=== PATIENT | female | born 1945 | race Caucasian/White ===

== ENCOUNTER → 2019-02-08 | Outpatient (CLI) | payer MEDICARE ==
--- NOTE | 2019-02-11 15:50 | RAD ---
EXAM: MAMMO VITA SCREEN RT HISTORY: routine screening evaluation. COMPARISON: Prior mammographic imaging 04/11/2016 CC and MLO views of the right breast performed. Right breast tomosynthesis was performed in CC and MLO projections. This study was interpreted with the benefit of Computerized Aided Detection (CAD). Breast Density: The breast parenchyma is dense, which could reduce the sensitivity of mammography. Breast parenchyma level density D. FINDINGS: Benign calcifications are present. The parenchymal pattern appears stable. No suspicious masses, microcalcifications or architectural distortion is present to suggest malignancy in either breast. The visualized axillae are unremarkable. IMPRESSION: No mammographic evidence of malignancy. BI-RADS CATEGORY: 2 BENIGN FINDING(S) RECOMMENDED FOLLOW-UP: 12M 12 MONTH FOLLOW-UP Annual screening mammography is recommended, unless clinically indicated sooner based on symptoms or change in physical exam. PQRS compliance statement: Patient information was entered into a reminder system with a target due date for the next mammogram. Mammography is a sensitive method for finding small breast cancers, but it does not detect them all and is not a substitute for careful clinical examination. A negative mammogram does not negate a clinically suspicious finding and should not result in delay in biopsying a clinically suspicious abnormality. "Our facility is accredited by the [employer] Mammography Program." LANAD
== END | disposition home or self-care (01) ==
LOC: MAMMO 14:05
PROVIDERS: ATTEND Physician Assistant Medical
DX: Z12.31 Encounter for screening mammogram for malignant neoplasm of breast (principal); N64.89 Other specified disorders of breast; Z85.3 Personal history of malignant neoplasm of breast
CPT/HCPCS: 77063; 77067

== ENCOUNTER → 2019-02-11 | Outpatient (CLI) | payer MEDICARE ==
--- NOTE | 2019-02-11 13:28 | RAD ---
Thyroid ultrasound HISTORY: Elevated TSH level. FINDINGS: Right lobe measures 5.3 x 2.0 x 2.5 cm. Left lobe measures 2.6 x 0.9 x 0.6 cm. Thyroid isthmus measures 4 mm. Mostly isoechoic solid mass at the inferior right lobe of the thyroid measuring 2.1 x 1.6 x 1.3 cm. This demonstrates internal and peripheral blood flow. 5 x 6 x 3 mm nodule at the midpole of the right lobe has a complex morphology without evidence of vascularity. 8 x 5 mm complex cystic nodule in the upper right thyroid adjacent to the isthmus without evidence of vascularity. Numerous additional tiny subcentimeter nodules are seen in both lobes of the thyroid. A couple of ovoid nodules are seen in the right neck, measuring 15 mm and 7 mm each, and each demonstrating benign lymph node architecture. IMPRESSION: 1. 3 right thyroid nodules. Largest at the lower pole measures 2.1 cm with vascularity. Malignant etiology is possible. 2. There are additional tiny subcentimeter nodules in both lobes. 3. Right neck lymph nodes are incidentally noted. Electronically signed by: Roman Armendariz MD (02/11/2019 1:25 PM) [id number]
== END | disposition home or self-care (01) ==
LOC: US 08:07
PROVIDERS: ATTEND Physician Assistant Medical
DX: E04.2 Nontoxic multinodular goiter (principal)
CPT/HCPCS: 76536

== ENCOUNTER → 2019-09-30 | Outpatient (CLI) | payer MEDICARE ==
--- NOTE | 2019-09-30 13:25 | RAD ---
Thyroid ultrasound study compared to similar examination dated 02/11/2019 for six-month follow-up of right thyroid biopsy which was negative. TECHNIQUE AND FINDINGS: Real-time grayscale and color Doppler evaluation of the thyroid gland is performed. The right thyroid lobe measures 5.4 x 2.5 x 2.2 cm and the left measures 3.7 x 1.3 x 1.3 cm. The isthmus measures 4 mm in thickness. There is normal color flow to the gland diffusely. There is redemonstration of a predominantly solid isoechoic nodule within the inferior posterior aspect the right lobe of the thyroid gland which is grossly unchanged in size and character from the prior study. This was the area of previous biopsy. This nodule is partially circumscribed but also demonstrates some area of poorly defined margination. This nodule measures 2.3 x 1.9 x 1.4 cm today, compared to earlier measurements of 2.1 x 1.6 x 1.3 cm. Also redemonstrated are scattered cystic nodules throughout the left lobe of the thyroid gland, as well as a predominantly cystic lesion involving the anterior aspect of the mid lobe of the right thyroid gland. No new nodules are identified. IMPRESSION: 1. Grossly stable appearance of the thyroid gland with a dominant inferior right thyroid isoechoic nodule with some indistinct margins. Measurements are as above. By history this was previously biopsied and negative. No definite interval growth or change in character. Electronically signed by: Wesley Fleming MD (09/30/2019 1:22 PM) [id number]
== END ==
LOC: US 10:05
PROVIDERS: ATTEND Surgery
DX: E04.1 Nontoxic single thyroid nodule (principal)
CPT/HCPCS: 76536

== ENCOUNTER → 2020-03-06 | Outpatient (CLI) | payer MEDICARE ==
--- NOTE | 2020-03-06 16:55 | RAD ---
EXAM: Right humerus, 2 views. HISTORY: Fracture follow-up. COMPARISON: 02/10/2020. FINDINGS: 2 views of the right humerus are obtained. There is internal fixation of a comminuted humeral head and neck fracture with a plate and multiple screws. There has been no significant interval healing along the main fracture lines. There is mild acromioclavicular osteoarthritis. IMPRESSION: No significant interval healing of a comminuted proximal humeral fracture status post internal fixation. Electronically signed by: Denise De Anda MD (03/06/2020 4:52 PM) [id number]
== END | disposition home or self-care (01) ==
LOC: DXRAD 12:16
PROVIDERS: ATTEND Physician Assistant
DX: S42.201A Unspecified fracture of upper end of right humerus, initial encounter for closed fracture (principal); M19.011 Primary osteoarthritis, right shoulder; X58.XXXA Exposure to other specified factors, initial encounter; Y93.89 Activity, other specified; Y92.89 Other specified places as the place of occurrence of the external cause; Y99.8 Other external cause status
CPT/HCPCS: 73060

== ENCOUNTER → 2020-04-03 | Outpatient (CLI) | payer MEDICARE ==
--- NOTE | 2020-04-03 16:20 | RAD ---
EXAM: Right wrist, 2 views per HISTORY: Swelling and pain. COMPARISON: None. FINDINGS: 2 views of the right wrist are obtained. There is a displaced intra-articular fracture of the distal radial metaphysis. There is mild degenerative spurring involving the base of the first metacarpal. There is soft tissue swelling. No foreign body is seen. There is suspected bone demineralization. IMPRESSION: Displaced intra-articular fracture of the distal radial metaphysis. Electronically signed by: Denise De Anda MD (04/03/2020 4:17 PM) [email or web address]
--- NOTE | 2020-04-03 16:32 | RAD ---
EXAM: Right humerus, 2 views. HISTORY: Fracture follow-up. COMPARISON: 03/06/2020. FINDINGS: 2 views of the right humerus are obtained. There is internal fixation of a humeral neck and proximal metaphyseal fracture with a plate and multiple screws. There is no significant interval callus formation along the fracture line. No new fracture is seen. There are chronic appearing rib fractures. IMPRESSION: No significant interval healing of a proximal humeral fracture status post internal fixation. Electronically signed by: Denise De Anda MD (04/03/2020 4:29 PM) [email or web address]
== END | disposition home or self-care (01) ==
LOC: DXRAD 12:34
PROVIDERS: ATTEND Physician Assistant
DX: S42.201A Unspecified fracture of upper end of right humerus, initial encounter for closed fracture (principal); M77.8 Other enthesopathies, not elsewhere classified; X58.XXXA Exposure to other specified factors, initial encounter; Y93.89 Activity, other specified; Y92.89 Other specified places as the place of occurrence of the external cause; Y99.8 Other external cause status
CPT/HCPCS: 73060; 73100

== ENCOUNTER → 2020-05-01 | Outpatient (CLI) | payer MEDICARE ==
--- NOTE | 2020-05-01 13:56 | RAD ---
2 views of right humerus compared to similar study dated 04/03/2020 for history of fracture. FINDINGS: Surgically fixated fracture of the humerus is redemonstrated and grossly unchanged in appearance and configuration from prior exam. There may be subtly more callus formation, though healing remains incomplete. IMPRESSION: 1. Surgically fixated fracture of the right humerus. Electronically signed by: Wesley Fleming MD (05/01/2020 1:53 PM) [id number]
--- NOTE | 2020-05-01 15:51 | RAD ---
3 views the right wrist compared to similar study dated April 03, 2020 for fracture follow-up. FINDINGS: Mildly impacted intra-articular fracture the distal radius is redemonstrated and appears grossly unchanged from the prior exam. No definite new callus formation. IMPRESSION: 1. Redemonstrated mildly impacted comminuted intra-articular distal radial fracture. Electronically signed by: Wesley Fleming MD (05/01/2020 3:47 PM) [email or web address]
== END ==
LOC: DXRAD 13:10
PROVIDERS: ATTEND Physician Assistant
DX: S52.571A Other intraarticular fracture of lower end of right radius, initial encounter for closed fracture (principal); S42.301A Unspecified fracture of shaft of humerus, right arm, initial encounter for closed fracture; X58.XXXA Exposure to other specified factors, initial encounter; Y93.89 Activity, other specified; Y92.89 Other specified places as the place of occurrence of the external cause; Y99.8 Other external cause status
CPT/HCPCS: 73060; 73110

== ENCOUNTER → 2020-05-15 | Outpatient (CLI) | payer MEDICARE ==
--- NOTE | 2020-05-15 16:25 | RAD ---
Right forearm 3 views INDICATION: Forearm pain. History of fractured the shoulder and wrist COMPARISON: Right wrist x-rays of 05/01/2020 FINDINGS: Impacted comminuted intra-articular fracture of the right wrist is present in the setting of mild lung mild deformity to the right wrist with apex radial bowing of the right radius. Since the last radiograph, minimal if any callus formation has occurred. No new fractures are seen. The soft tissues are unremarkable IMPRESSION: There is bowing deformity to the right forearm without evidence of a separate fracture from the wrist fracture previously described. No specific cause for right forearm pain is otherwise identified. Electronically signed by: Mague Navarro MD (05/15/2020 4:22 PM) [id number]
== END ==
LOC: DXRAD 15:09
PROVIDERS: ATTEND Physician Assistant
DX: S42.011A Anterior displaced fracture of sternal end of right clavicle, initial encounter for closed fracture (principal); M21.831 Other specified acquired deformities of right forearm; X58.XXXA Exposure to other specified factors, initial encounter; Y93.89 Activity, other specified; Y92.89 Other specified places as the place of occurrence of the external cause; Y99.8 Other external cause status
CPT/HCPCS: 73090

== ENCOUNTER 2021-08-27 18:06 | Emergency (ER) | payer MEDICARE ==
[~2021-08-27] VITALS: Ht 152.4 cm; Wt 70.5 kg
--- NOTE | 2021-08-27 18:31 | PHYS DOC ---
Past History Past Medical History: Cancer Additional Past Medical Histor: breast cancer Past Surgical History: Other Additional Past Surgical Histo: L mastectomy, eye surgery General Adult EDM: Chief Complaint: RIB PAIN HPI: HPI: Patient is a 76 year old female who presents with above hx of trip and fall on stair case. Fell on Lt side chest and back. No Spleen tenderness. Pain with deep breaths and movement. Injury occured yesterday. Came in to day because she was still sore. Patient has significant past medical history of breast cancer status post surgery radiation and chemotherapy. Has had falls and fracture of right humerus in the past with surgical reconstruction. Patient normally follows with Dr. Joya and has also follow-up with Melissa for care. Patient denies other injury in the fall. Does have extensive tenderness along left chest wall. Has large mastectomy scar. Patient states deep breaths coughing exacerbates pain. Movement and bending over exacerbates pain. No rebound pain to the spleen area. Crests of renal area is nontender. Patient denies any other injury. Patient denies any dyspnea or cardiac dysrhythmia or pain or angina equivalent. Review of Systems: Review of Systems: Constitutional: Denies fever or chills Eyes: Denies change in visual acuity HENT: Denies nasal congestion or sore throat Respiratory: Complains of left chest wall pain Cardiovascular: Complains of left chest wall pain GI: Denies abdominal pain, nausea, vomiting, bloody stools or diarrhea : Denies dysuria Musculoskeletal: Denies back pain or joint pain Integument: Denies rash Neurologic: Denies headache, focal weakness or sensory changes Endocrine: Denies polyuria or polydipsia Lymphatic: Denies swollen glands Psychiatric: Denies depression or anxiety Family History: Family History: Noncontributory to presentation Current Medications: Current Meds: See nursing for home meds Allergies: Allergies: No known drug allergies Physical Exam: PE: Constitutional: Moderate acute distress, non-toxic appearance. [] HENT: Normocephalic, atraumatic, bilateral external ears normal, oropharynx moist, no oral exudates, nose normal. [] Eyes: PERRLA, EOMI, conjunctiva normal, no discharge. [] Neck: Normal range of motion, no tenderness, supple, no stridor. [] Cardiovascular:Heart rate regular rhythm, no murmur []. PMI to left Lungs & Thorax: Bilateral breath sounds equal apex on auscultation [. Marked tenderness left chest wall. Has mastectomy scar. Abdomen: Bowel sounds normal, soft, no spleen tenderness, no masses, no pulsatile masses. [] Skin: Warm, dry, no erythema, no rash. [] Back: No tenderness, no CVA tenderness. [] Extremities: No tenderness, no cyanosis, no clubbing, ROM intact, no edema. No cording appreciated Neurologic: Alert and oriented X 3, normal motor function, normal sensory function, no focal deficits noted. [] Psychologic: Affect anxious, judgement normal, mood normal. [] EKG: EKG: [] Radiology/Procedures: Radiology/Procedures: [[address] [address] IMAGING REPORT Signed PATIENT: BERENICE MEJIA ACCOUNT: [id number] : 1945 LOCATION: ER AGE: 76 SEX: F EXAM STATUS: REG ER ORD. PHYSICIAN: KRISTAL PATEL MD REASON: rib pain, ANTERIOR - MID LEFT SIDE PROCEDURE: CHEST PA & LATERAL EXAM: CHEST 1 VIEW History: Fall, pain COMPARISON: None available TECHNIQUE: Single portable radiograph of the chest FINDINGS: Cardiomegaly. Mild displaced left rib fractures involving the left third through 10th ribs. Mild left lung base airspace opacities likely atelectasis or infiltrate. Probable trace left pneumothorax. IMPRESSION: 1. Mild displaced left rib fractures involving the left third through 10th ribs. Probable trace left pneumothorax. 2. Mild left lung base airspace opacities likely atelectasis or infiltrate. Electronically signed by: Smooth Menjivar MD (08/27/2021 7:38 PM) [id number] DICTATED AND SIGNED BY: SMOOTH MENJIVAR MD DATE: 08/27/211933 CC: KRISTAL PATEL MD; WILMER CLIFTON PA ~MTH0 0 ][address] [address] IMAGING REPORT Signed PATIENT: BERENICE MEJIA ACCOUNT: [id number] : 1945 LOCATION: ER AGE: 76 SEX: F EXAM STATUS: REG ER ORD. PHYSICIAN: KRISTAL PATEL MD REASON: fall down stairs, ANTERIOR-MID RIBS PAIN PROCEDURE: CT CHEST WO CONTRAST Examination: CT chest without contrast HISTORY: History of fall down the stairs, anterior knee pain COMPARISON: None available TECHNIQUE: Axial CT images of chest were performed without contrast. Coronal and sagittal reformats are performed Exposure: One or more of the following individualized dose reduction techniques were utilized for this examination: 1. Automated exposure control 2. Adjustment of the mA and/or kV according to patient size 3. Use of iterative reconstruction technique FINDINGS: 2.1cm nodule identified in the right lobe of thyroid gland. The central airways are patent. Moderate cardiomegaly. Small left pleural effusion identified with left lung base airspace opacity. Linear atelectasis identified in the left lingula or small contusion. Trace left pneumothorax is identified. There are mild displaced fractures of the left third rib anterolaterally and posteriorly, mild displaced fractures left anterolateral and posterior fourth rib, lateral and posterior fifth rib, sixth rib ,seventh rib, eighth and ninth ribs laterally and posteriorly. The visualized noncontrasted liver, spleen grossly appears unremarkable Moderate degenerative changes thoracic spine small superior endplate Schmorl's node identified at T12 vertebral body. IMPRESSION: 1. Multiple left-sided rib fractures as described above. There ribs are fractured at multiple places as described above likely flail chest. 2. Trace left pneumothorax. 3. Small left pleural effusion with left lung base airspace opacity likely atelectasis or infiltrate. 4. Linear atelectasis or small contusion identified in the left lingula of lung. 5. 2.1 cm nodule identified in the right lobe of thyroid gland. Follow-up nonemergent ultrasound thyroid gland. Electronically signed by: Smooth Menjivar MD (08/27/2021 7:29 PM) [id number] DICTATED AND SIGNED BY: SMOOTH MENJIVAR MD DATE: 08/27/211918 CC: KRISTAL PATEL MD; WILMER CLIFTON ~MTH0 0 Heart Score: C/O Chest Pain: N/A Risk Factors: Risk Factors: DM, Current or recent (<one month) smoker, HTN, HLP, family history of CAD, obesity. Risk Scores: Score 0 - 3: 2.5% MACE over next 6 weeks - Discharge Home Score 4 - 6: 20.3% MACE over next 6 weeks - Admit for Clinical Observation Score 7 - 10: 72.7% MACE over next 6 weeks - Early Invasive Strategies Course & Med Decision Making: Course & Med Decision Making Pertinent Labs and Imaging studies reviewed. (See chart for details) Ice packs as needed. Take tylenol ad ibuprofen for pain. Marked pain take Vicoprofen. Re- xray tomorrow- to make sure pneumothorax hemothorax has not expanded. And again then bianka-ray on day 3. Follow-up primary care. Hold any anti coagulants. Ice packs as needed.Hold Pradaxa x 2 days. Impression: 1. Trip and Fall 08/25/2021 2. Multiple Rt. Fractures Lt. side 3. Very Small Pneumothroax left apex 4. Pulmonary contusion/ Hematoma 5. Hx. Breast Cancer S/P surgery, chemo and radiation 6. Hx. of Rx Shoulder Fracture-status post open repair and fixation [] Dragon Disclaimer: Dragon Disclaimer: This electronic medical record was generated, in whole or in part, using a voice recognition dictation system. Departure Departure: Referrals: WILMER CLIFTON (PCP) Scripts Hydrocodone/Ibuprofen (HYDROCODONE-IBUPROFEN 7.5-200 ) 1 Each Tablet 1 TAB PO PRN Q6HRS PRN for PAIN, #30 TAB 0 Refills Prov: KRISTAL PATEL MD 08/27/21 Dragon Disclaimer This chart was dictated in whole or in part using Voice Recognition software in a busy, high-work load, and often noisy Emergency Department environment. It may contain unintended and wholly unrecognized errors or omissions. Dragon Disclaimer This chart was dictated in whole or in part using Voice Recognition software in a busy, high-work load, and often noisy Emergency Department environment. It may contain unintended and wholly unrecognized errors or omissions. Dragon Disclaimer This chart was dictated in whole or in part using Voice Recognition software in a busy, high-work load, and often noisy Emergency Department environment. It may contain unintended and wholly unrecognized errors or omissions. KRISTAL PATEL MD Aug 27, 2021 18:31
[2021-08-27] MEDS: MORPHINE SULFATE 10 MG/ML SYRINGE. SQ ONE (19:14)
--- NOTE | 2021-08-27 19:32 | RAD ---
Examination: CT chest without contrast HISTORY: History of fall down the stairs, anterior knee pain COMPARISON: None available TECHNIQUE: Axial CT images of chest were performed without contrast. Coronal and sagittal reformats a re performed Exposure: One or more of the following individualized dose reduction techniques were utilized for thi s examination: 1. Automated exposure control 2. Adjustment of the mA and/or kV according to patient size 3. Use of iterative reconstruction technique FINDINGS: 2.1cm nodule identified in the right lobe of thyroid gland. The central airways are patent. Moderate cardiomegaly. Small left pleural effusion identified with left lung base airspace opacity. Linear atelectasis ident ified in the left lingula or small contusion. Trace left pneumothorax is identified. There are mild d isplaced fractures of the left third rib anterolaterally and posteriorly, mild displaced fractures le ft anterolateral and posterior fourth rib, lateral and posterior fifth rib, sixth rib ,seventh rib, e ighth and ninth ribs laterally and posteriorly. The visualized noncontrasted liver, spleen grossly ap pears unremarkable Moderate degenerative changes thoracic spine small superior endplate Schmorl's node identified at T12 vertebral body. IMPRESSION: 1. Multiple left-sided rib fractures as described above. There ribs are fractured at multiple places as described above likely flail chest. 2. Trace left pneumothorax. 3. Small left pleural effusion with left lung base airspace opacity likely atelectasis or infiltrate . 4. Linear atelectasis or small contusion identified in the left lingula of lung. 5. 2.1 cm nodule identified in the right lobe of thyroid gland. Follow-up nonemergent ultrasound thy roid gland. Electronically signed by: Smooth Menjivar MD (08/27/2021 7:29 PM) [id number]
--- NOTE | 2021-08-27 19:41 | RAD ---
EXAM: CHEST 1 VIEW History: Fall, pain COMPARISON: None available TECHNIQUE: Single portable radiograph of the chest FINDINGS: Cardiomegaly. Mild displaced left rib fractures involving the left third through 10th ribs . Mild left lung base airspace opacities likely atelectasis or infiltrate. Probable trace left pneumo thorax. IMPRESSION: 1. Mild displaced left rib fractures involving the left third through 10th ribs. Probable trace left pneumothorax. 2. Mild left lung base airspace opacities likely atelectasis or infiltrate. Electronically signed by: Smooth Menjivar MD (08/27/2021 7:38 PM) [id number]
[2021-08-27] MEDS ORDERED: HYDR-1179 PO (19:43)
[2021-08-27 20:32] VITALS: BP 140/78
== END 2021-08-27 20:32 | disposition home or self-care (01) ==
LOC: ER 18:06
DX: S22.42XA Multiple fractures of ribs, left side, initial encounter for closed fracture (principal); J93.9 Pneumothorax, unspecified; Z90.12 Acquired absence of left breast and nipple; W01.0XXA Fall on same level from slipping, tripping and stumbling without subsequent striking against object, initial encounter; Y93.89 Activity, other specified; Y92.89 Other specified places as the place of occurrence of the external cause; Y99.8 Other external cause status
CPT/HCPCS: 71046; 71250; 96372; 99284; J2270

== ENCOUNTER 2021-08-30 13:20 | Emergency (ER) | payer MEDICARE ==
[~2021-08-30] VITALS: Ht 152.4 cm; Wt 70.5 kg
[~2021-08-30 13:20] MED LIST: HYDR-1179 PO
[2021-08-30] MEDS ORDERED: KETOROLAC 60 MG/2 ML VIAL. IM ONE (14:30)
[2021-08-30] MEDS ORDERED: oxyCODONE/APAP 5/325 1 TAB TABLET PO ONE (14:45)
--- NOTE | 2021-08-30 15:07 | RAD ---
EXAM: Chest, 2 views. HISTORY: Rib fractures. Pain. COMPARISON: 08/27/2021 FINDINGS: 2 views of the chest are obtained. There is a stable small left pleural effusion with left lower lobe consolidation or collapse and lingular atelectasis or infiltrate. There is cardiomegaly. T here is no pneumothorax. There are surgical clips overlying the left axilla. There are multiple displ aced left rib fractures. There is internal fixation of a proximal right humeral fracture. IMPRESSION: 1. Stable small left pleural effusion with lower lobe consolidation or collapse and lingular atelecta sis or infiltrate. 2. Multiple displaced left rib fractures. Electronically signed by: Denise De Anda MD (08/30/2021 3:05 PM) [id number]
[2021-08-30] MEDS ORDERED: IV NORMAL SALINE 1,000ML 1,000 ML IV ONE (15:30)
--- NOTE | 2021-08-30 16:12 | RAD ---
CT scan of the head without contrast 08/30/2021 Clinical History: Fall. Head injury. Technique: Unenhanced, contiguous, 5 mm axial sections were obtained through the head. One or more of the following individualized dose reduction techniques were utilized for this study: 1. Automated exposure control. 2. Adjustment of the mA and/or kV according to patient size. 3. Use of iterative reconstruction technique. Findings: There is generalized parenchymal atrophy. Areas of decreased attenuation are seen within th e periventricular and subcortical white matter of both cerebral hemispheres consistent with areas of small vessel ischemic disease. No acute parenchymal abnormality is seen. No extra-axial fluid collect ion is noted. No skull fracture is seen. Impression: No acute intracranial abnormality is seen. CT scan of the cervical spine without contrast 08/30/2021 Clinical history: Fall with neck injury. Technique: Unenhanced, contiguous, 0.625 mm axial sections were obtained through the cervical spine. 2.5 mm reconstructed axial and 2 mm coronal and sagittal reconstructed images were obtained. One or more of the following individualized dose reduction techniques were utilized for this study: 1. Automated exposure control. 2. Adjustment of the mA and/or kV according to patient size. 3. Use of iterative reconstruction technique. Findings: Sagittal and coronal reconstructed images demonstrate mild lateral curvature of the cervica l spine, convex to the left. There is reversal the normal cervical lordosis. Degenerative changes con sisting of varying degrees of disc space narrowing, vertebral endplate sclerosis and mild to moderate anterior vertebral body osteophyte formation are seen throughout the cervical disc spaces. No fracture or subluxation of the cervical vertebrae is seen. Degenerative changes are seen involving the uncovertebral and facet joints throughout the cervical disc spaces. Atherosclerotic calcificatio n is seen in the region carotid bifurcations. Impression: No fracture or subluxation of the cervical vertebra is identified. Electronically signed by: Winston Ortiz MD (08/30/2021 4:10 PM) [id number]
[2021-08-30 16:23] LABS: BASO % 1 % (0-3); EOS # 0.1 x10^3/uL (0.0-0.7); EOS % 1 % (0-3); HEMATOCRIT 42.1 % (36.0-47.0); HEMOGLOBIN 13.8 g/dL (12.0-15.5); LYMPH # 0.7 x10^3/uL (1.0-4.8); LYMPH % 11 % (24-48); MEAN CORPUSCULAR HEMOGLOBIN 31 pg (25-35); MEAN CORPUSCULAR HGB CONC 33 g/dL (31-37); MEAN CORPUSCULAR VOLUME 96 fL (79-100); MONO # 0.8 x10^3/uL (0.0-1.1); MONO % 11 % (0-9); NEUT # 5.3 x10^3uL (1.8-7.7); NEUT % 77 % (31-73); PLATELET COUNT 223 x10^3/uL (140-400); RED BLOOD COUNT 4.39 x10^6/uL (3.50-5.40); RED CELL DISTRIBUTION WIDTH 15.3 % (11.5-14.5); WHITE BLOOD COUNT 6.9 x10^3/uL (4.0-11.0)
--- NOTE | 2021-08-30 16:24 | PHYS DOC ---
Past History Past Medical History: Cancer Additional Past Medical Histor: breast cancer Past Surgical History: Other Additional Past Surgical Histo: L mastectomy, eye surgery Alcohol Use: Occasionally General Adult EDM: Chief Complaint: PAIN CONTROL HPI: HPI: Patient is a 76-year-old female who presents with left-sided rib pain after a fall on Friday. Patient states that she fell down multiple stairs and landed on her left side on a tile floor. Patient was seen in the emergency room on Friday and asked to return for follow-up imaging due to evidence of rib f racture on previous x-rays. Patient states that her pain has not been controlled at home with hydrocodone. Rating pain 02/27. Patient states she is currently taking Pradaxa. Patient has not taken blood thinner since Friday. Patient denies loss of consciousness. Denies any other complaints or injuries. Review of Systems: Review of Systems: ROS At least 10 ROS systems have been reviewed and are negative except as documented in the HPI. General: Negative except as outlined in HPI above. Skin: Negative except as outlined in HPI above. HEENT: Negative except as outlined in HPI above. Neck: Negative except as outlined in HPI above. Respiratory: Negative except as outlined in HPI above.. Cardiovascular: Negative except as outlined in HPI above. Abdomen: Negative except as outlined in HPI above. : Negative except as outlined in HPI above. Back/MSK: Negative except as outlined in HPI above. Neuro: Negative except as outlined in HPI above. Psych: Negative except as outlined in HPI above. Current Medications: Current Meds: Current Medications Medications (Trade) Dose Ordered Sig/Edda Start Time Stop Time Status Last Admin Dose Admin Fentanyl Citrate (Fentanyl 2ml Vial) 50 mcg 1X ONCE 08/30/21 15:30 08/30/21 15:37 DC 08/30/21 16:02 50 MCG Ketorolac Tromethamine (Toradol Im) 60 mg 1X ONCE 08/30/21 14:30 08/30/21 14:31 DC 08/30/21 14:44 60 MG Oxycodone/ Acetaminophen (Percocet 5/325) 1 tab 1X ONCE 08/30/21 14:45 08/30/21 14:46 DC 08/30/21 14:42 1 TAB Sodium Chloride 1,000 ml @ 1,000 mls/hr 1X ONCE 08/30/21 15:30 08/30/21 16:29 08/30/21 15:30 1,000 MLS/HR Allergies: Allergies: Allergies Coded Allergies Type Severity Reaction Last Updated Verified No Known Drug Allergies 08/27/21 No Physical Exam: PE: Constitutional: Well developed, well nourished, no acute distress, non-toxic appearance. HENT: Normocephalic, atraumatic, bilateral external ears normal, oropharynx moist, no oral exudates, nose normal. Eyes: PERRLA, EOMI, conjunctiva normal, no discharge. Neck: Normal range of motion, no tenderness, supple, no stridor. Cardiovascular:Heart rate regular rhythm, no murmur Lungs & Thorax: Bilateral breath sounds clear to auscultation Abdomen: Bowel sounds normal, soft, no tenderness, no masses, no pulsatile masses. Skin: Warm, dry, no erythema, no rash. Back: No tenderness, no CVA tenderness. Extremities: No tenderness, no cyanosis, no clubbing, ROM intact, no edema. Neurologic: Alert and oriented X 3, normal motor function, normal sensory function, no focal deficits noted. Psychologic: Affect normal, judgement normal, mood normal. Current Patient Data: Vital Signs: Vital Signs Date Time Temp Pulse Resp B/P (MAP) Pulse Ox O2 Delivery O2 Flow Rate FiO2 08/30/21 16:02 16 95 08/30/21 13:24 98.0 74 130/72 (91) EKG: EKG: [] Radiology/Procedures: Radiology/Procedures: []CT scan of the head without contrast 08/30/2021 Clinical History: Fall. Head injury. Technique: Unenhanced, contiguous, 5 mm axial sections were obtained through the head. One or more of the following individualized dose reduction techniques were utilized for this study: 1. Automated exposure control. 2. Adjustment of the mA and/or kV according to patient size. 3. Use of iterative reconstruction technique. Findings: There is generalized parenchymal atrophy. Areas of decreased attenuation are seen within the periventricular and subcortical white matter of both cerebral hemispheres consistent with areas of small vessel ischemic disease. No acute parenchymal abnormality is seen. No extra-axial fluid collection is noted. No skull fracture is seen. Impression: No acute intracranial abnormality is seen. CT scan of the cervical spine without contrast 08/30/2021 Clinical history: Fall with neck injury. Technique: Unenhanced, contiguous, 0.625 mm axial sections were obtained through the cervical spine. 2.5 mm reconstructed axial and 2 mm coronal and sagittal reconstructed images were obtained. One or more of the following individualized dose reduction techniques were utilized for this study: 1. Automated exposure control. 2. Adjustment of the mA and/or kV according to patient size. 3. Use of iterative reconstruction technique. Findings: Sagittal and coronal reconstructed images demonstrate mild lateral curvature of the cervical spine, convex to the left. There is reversal the no rmal cervical lordosis. Degenerative changes consisting of varying degrees of disc space narrowing, vertebral endplate sclerosis and mild to moderate anterior vertebral body osteophyte formation are seen throughout the cervical disc spaces. No fracture or subluxation of the cervical vertebrae is seen. Degenerative changes are seen involving the uncovertebral and facet joints throughout the cervical disc spaces. Atherosclerotic calcification is seen in the region carotid bifurcations. Impression: No fracture or subluxation of the cervical vertebra is identified. Electronically signed by: Winston Ortiz MD (08/30/2021 4:10 PM) [id number] DICTATED AND SIGNED BY: WINSTON ORTIZ MD DATE: 08/30/21 1606 CC: CHELI NEWMAN APRN; WINSTON FRIEDMAN MD; WILMER CLIFTON PA ~MTH0 0 EXAM: Chest, 2 views. HISTORY: Rib fractures. Pain. COMPARISON: 08/27/2021 FINDINGS: 2 views of the chest are obtained. There is a stable small left pleural effusion with left lower lobe consolidation or collapse and lingular atelectasis or infiltrate. There is cardiomegaly. There is no pneumothorax. There are surgical clips overlying the left axilla. There are multiple displaced left rib fractures. There is internal fixation of a proximal right humeral fracture. IMPRESSION: 1. Stable small left pleural effusion with lower lobe consolidation or collapse and lingular atelectasis or infiltrate. 2. Multiple displaced left rib fractures. Electronically signed by: Denise De Anda MD (08/30/2021 3:05 PM) [id number] Heart Score: C/O Chest Pain: No Risk Factors: Risk Factors: DM, Current or recent (<one month) smoker, HTN, HLP, family history of CAD, obesity. Risk Scores: Score 0 - 3: 2.5% MACE over next 6 weeks - Discharge Home Score 4 - 6: 20.3% MACE over next 6 weeks - Admit for Clinical Observation Score 7 - 10: 72.7% MACE over next 6 weeks - Early Invasive Strategies Course & Med Decision Making: Course & Med Decision Making Pertinent Labs and Imaging studies reviewed. (See chart for details) [] Venkata Reed presents with left-sided rib pain after a fall on Friday. Patient was seen in the emergency room Friday, x-ray showed rib fractures from ribs 310. Patient was instructed to return today for repeat imaging. Chest x- ray is unchanged from previous images on Friday. Patient is reporting uncontrolled pain at home with hydrocodone. Work-up in ER consisted of labs, urinalysis, CT head and cervical spine, chest x-ray. CT head and cervical spine is unchanged from previous visit. Patient's pain was treated in the emergency room. Advised patient that she would need to be transferred to a hospital that manages trauma. Spoke with Dr. Saldana at [facility]. Dr. Saldana is accepting patient for an ER to ER transfer . Patient is hemodynamically stable upon disposition. Pili Disclaimer: Pili Disclaimer: This electronic medical record was generated, in whole or in part, using a voice recognition dictation system. Departure Departure: Impression: Primary Impression: Ribs, multiple fractures Qualified Codes: S22.42XA - Multiple fractures of ribs, left side, initial encounter for closed fracture Additional Impression: Fall Qualified Codes: W19.XXXA - Unspecified fall, initial encounter Disposition: 02 SHORT TERM HOSPITAL Condition: STABLE Referrals: WILMER CLIFTON (PCP) CHELI NEWMAN APRN Aug 30, 2021 16:24
[2021-08-30 16:25] LABS: CREATININE 0.9 mg/dL (0.6-1.0); GFR 60.9; POTASSIUM 4.4 mmol/L (3.5-5.1)
[2021-08-30 17:16] VITALS: BP 126/74
== END 2021-08-30 18:11 | disposition short-term general hospital (02) ==
LOC: ER 13:20
DX: S22.42XA Multiple fractures of ribs, left side, initial encounter for closed fracture (principal); Z20.822 Contact with and (suspected) exposure to COVID-19; Z79.01 Long term (current) use of anticoagulants; W10.8XXA Fall (on) (from) other stairs and steps, initial encounter; Y93.89 Activity, other specified; Y92.89 Other specified places as the place of occurrence of the external cause; Y99.8 Other external cause status
CPT/HCPCS: 36415; 70450; 71046; 72125; 80048; 85025; 85610; 85730; 87426; 96361; 96372; 96374; 99285; C9803; J1885; J3010; J7030; U0003